=== PATIENT | female | born 1945 | race Caucasian/White ===

== ENCOUNTER 2019-04-11 03:50 | Emergency (ER) | payer MEDICARE, OTHER ==
[~2019-04-11] VITALS: Ht 165.1 cm; Wt 68.2 kg
[2019-04-11] MEDS ORDERED: normal saline 1000ML IV soln IVB ONE (04:25)
[2019-04-11] MEDS ORDERED: morphine 4 MG/ML inj SYRINge IV PRN (04:25)
[2019-04-11] MEDS ORDERED: ondansetron/PF 4mg/2ml inj IV ONE (04:25)
--- NOTE | 2019-04-11 04:55 | NUR ---
Pt heart rate in the high 40's. MD notified. All other vital signs stable
[2019-04-11 04:56] LABS: BASOPHILS # (AUTO) 0.1 X10'3 (0-0.2); BASOPHILS % (AUTO) 1.1 % (0-1); EOSINOPHILS # (AUTO) 0.4 X10'3 (0-0.9); EOSINOPHILS % (AUTO) 6.8 % (0-6); HEMATOCRIT 40.9 % (35.0-45.0); HEMOGLOBIN 13.8 g/dl (12.0-16.0); LYMPHOCYTES # (AUTO) 1.5 X10'3 (1.1-4.8); LYMPHOCYTES % (AUTO) 27.8 % (21-51); MEAN CORPUSCULAR HEMOGLOBIN 29.2 PG (27.0-31.0); MEAN CORPUSCULAR HGB CONC 33.7 g/dL (33.0-36.5); MEAN CORPUSCULAR VOLUME 86.7 FL (78-98); MEAN PLATELET VOLUME 8.5 FL (7.4-10.4); MONOCYTES # (AUTO) 0.5 X10'3 (0-0.9); MONOCYTES % (AUTO) 9.4 % (2-12); NEUTROPHILS % (AUTO) 54.9 % (42-75); PLATELET COUNT 183 X10'3 (140-440); RED BLOOD COUNT 4.71 X10'6 (4.20-5.60); RED CELL DISTRIBUTION WIDTH 13.9 % (11.5-14.5); WHITE BLOOD COUNT 5.4 X10'3 (4.5-11.0)
[2019-04-11 05:03] LABS: ALANINE AMINOTRANSFERASE 28 U/L (12-78); ALBUMIN 3.6 G/DL (3.4-5.0); ALKALINE PHOSPHATASE 96 IU/L (46-116); ANION GAP 9 (8-16); ASPARTATE AMINO TRANSFERASE 20 U/L (10-37); BILIRUBIN,TOTAL 0.3 MG/DL (0.1-1.0); BLOOD UREA NITROGEN 21 MG/DL (7-18); BUN/CREATININE RATIO 18.6 (6.6-38.0); CALCIUM 8.6 MG/DL (8.5-10.1); CHLORIDE 108 MMOL/L (99-107); CREATININE 1.13 MG/DL (0.40-0.90); GLUCOSE 168 MG/DL (70-104); LIPASE 317 U/L (73-393); POTASSIUM 3.8 MMOL/L (3.5-5.1); SODIUM 143 MMOL/L (135-145); TOTAL CARBON DIOXIDE 25.7 MMOL/L (24-32); TOTAL PROTEIN 7.1 G/DL (6.4-8.2); eGFR 47 ML/MIN
[2019-04-11] MEDS ORDERED: FLO0.4C PO (05:12)
[2019-04-11] MEDS ORDERED: CIPR-230 PO (05:12)
[2019-04-11] MEDS ORDERED: HYDR-3965 PO (05:12)
[2019-04-11 05:43] LABS: CLARITY,URINE SLIGHTLY CLOUDY (Clear); COLOR,URINE YELLOW (Yellow); GLUCOSE, URINE NEGATIVE (Neg); KETONES,URINE NEGATIVE (Neg); LEUKOCYTE ESTERASE ,URINE NEGATIVE (Neg); NITRITES, URINE NEGATIVE (Neg); OCCULT BLOOD,URINE LARGE (Neg); PH,URINE 5.5 (4.8-8.0); PROTEIN,URINE TRACE mg/dl (Neg); UROBILINOGEN,URINE 0.2 E.U/dL (0.2-1.0)
[2019-04-11] MEDS ORDERED: ketorolac trometh. 30mg/ml inj. IV ONE (05:45)
[2019-04-11 05:48] LABS: UA COLLECTION TYPE CLN CATCH MIDSTREAM
[2019-04-11 05:50] LABS: BACTERIA,URINE FEW /HPF (Neg); CAL OXALATE CRYSTALS 3+ /HPF (NEGATIVE); MUCUS STRANDS NONE SEEN /LPF (Neg); RBC,URINE TNTC /HPF (0-2); SQUAMOUS EPITHELIAL CELL,UR FEW /LPF (FEW)
[2019-04-11 06:01] VITALS: BP 130/65
== END 2019-04-11 06:10 | disposition home or self-care (01) ==
LOC: ER 03:51
DX: N20.0 Calculus of kidney (principal); R10.31 Right lower quadrant pain; Z88.0 Allergy status to penicillin; Z79.899 Other long term (current) drug therapy
CPT/HCPCS: 36415; 74176; 80053; 81001; 82948; 83690; 85025; 87088; 96374; 96375; 99284; J1885; J2270; J2405; J7030